=== PATIENT | female | born 1950 | race Caucasian/White ===

== ENCOUNTER 2018-12-29 09:27 | Inpatient (IN) | payer MEDICARE ==
[~2018-12-29] VITALS: Ht 157.5 cm; Wt 82.2 kg
[2019-01-06] MEDS ORDERED: LACT-103 PO (14:40)
[2019-01-06] MEDS ORDERED: IBUP200T64 PO (14:40)
[2019-01-14] MEDS ORDERED: LACTATED RINGERS 1,000 ML IV SCH (07:25)
[2019-01-14] MEDS ORDERED: GABAPENTIN 300 MG CAPSULE PO ONE (07:30)
[2019-01-14] MEDS ORDERED: ACETAMINOPHEN 500 MG TABLET PO ONE (07:30)
[2019-01-14] MEDS ORDERED: FENTANYL PF 250 MCG/5ML ONE (07:39)
[2019-01-14] MEDS ORDERED: MIDAZOLAM 1 MG/ML, 2ML ONE (07:39)
[2019-01-14 07:59] VITALS: BP 127/81
[2019-01-14] MEDS ORDERED: TRANEXAMIC ACID 100 MG/ML, 10ML ONE (08:14)
[2019-01-14] MEDS ORDERED: KETOROLAC 60 MG/2 ML ONE (08:14)
[2019-01-14] MEDS ORDERED: SODIUM CHLORIDE 0.9% 100 ML ONE (08:15)
[2019-01-14] MEDS ORDERED: EPINEPHRINE 1 MG/ML, 1ML ONE (08:15)
[2019-01-14] MEDS ORDERED: ROPIvacaine/PF 0.2%, 20 ML ONE (08:15)
[2019-01-14] MEDS ORDERED: PROMETHAZINE 25 MG/ML, 1ML IV PRN (08:30)
[2019-01-14] MEDS ORDERED: ALBUTEROL/IPRATROPIUM 2.5MG/0.5MG, 3 ML NPPB PRN (08:30)
[2019-01-14] MEDS ORDERED: METOPROLOL 1 MG/ML, 5ML IV PRN (08:30)
[2019-01-14] MEDS ORDERED: ONDANSETRON 2MG/ML, 2ML IV PRN ×2 (08:30→09:00)
[2019-01-14] MEDS ORDERED: OXYcodone 5 MG/5 ML ORAL.SOL UDC PO PRN (08:30)
[2019-01-14] MEDS ORDERED: SCOPOLAMINE PATCH, 1.5MG PATCH.TD72 TD PRN (08:30)
[2019-01-14] MEDS ORDERED: MEPERIDINE/PF 25MG/0.5ML IVPush PRN (08:30)
[2019-01-14] MEDS ORDERED: MIDAZOLAM 1 MG/ML, 2ML IV PRN (08:30)
[2019-01-14] MEDS ORDERED: hydrALAzine 20 MG/ML, 1ML IV PRN (08:30)
[2019-01-14] MEDS ORDERED: PROMETHAZINE 25 MG/ML, 1ML IM PRN (09:00)
[2019-01-14] MEDS ORDERED: ONDANSETRON 4 MG TABLET PO PRN (09:00)
[2019-01-14] MEDS ORDERED: SENNA/DOCUSATE TABLET PO PRN (09:00)
[2019-01-14] MEDS ORDERED: PROMETHAZINE 12.5 MG SUPP PR PRN (09:00)
[2019-01-14] MEDS: DOCUSATE 100 MG CAPSULE PO SCH ×2 (09:00→23:07)
[2019-01-14] MEDS: ACETAMINOPHEN 325 MG TABLET PO SCH ×3 (09:00→23:07)
[2019-01-14] MEDS ORDERED: ALUMINUM/MAG/SIMETHICONE 30 ML UDC PO PRN (09:00)
[2019-01-14] MEDS ORDERED: ZOLPIDEM 5MG TABLET PO PRN (09:00)
[2019-01-14] MEDS ORDERED: BISACODYL 10 MG SUPP PR PRN (09:00)
[2019-01-14] MEDS ORDERED: MAGNESIUM HYDROXIDE 8%, 30ML UDC PO PRN (09:00)
[2019-01-14] MEDS ORDERED: KETOROLAC 30 MG/1 ML IV SCH (09:00)
[2019-01-14] MEDS ORDERED: DIAZEPAM 5 MG TABLET PO PRN (09:00)
[2019-01-14] MEDS ORDERED: DIPHENHYDRAMINE 25 MG CAPSULE PO PRN (09:00)
[2019-01-14] MEDS ORDERED: ONDANSETRON 2MG/ML, 2ML ONE ×2 (09:13→09:59)
[2019-01-14] MEDS ORDERED: SUCCINYLCHOLINE 20 MG/ML, 10ML ONE (09:13)
[2019-01-14] MEDS ORDERED: ROCURONIUM 10 MG/ML,10ML ONE (09:13)
[2019-01-14] MEDS ORDERED: PROPOFOL 10 MG/ML, 20ML ONE (09:59)
[2019-01-14] MEDS ORDERED: CEFAZOLIN 1,000 MG ONE (09:59)
[2019-01-14] MEDS ORDERED: OXYcodone 5 MG/5 ML ORAL.SOL UDC ONE (10:57)
[2019-01-14] MEDS ORDERED: FENTANYL PF 100 MCG/2ML ONE (10:57)
[2019-01-14] MEDS ORDERED: TAMSULOSIN 0.4 MG CAP.ER.24H PO SCH (11:00)
[2019-01-14] MEDS ORDERED: TRANEXAMIC ACID 1,000 MG in SODIUM CHLORIDE 0.9% 100 ML IVPB ONE (11:00)
[2019-01-14] MEDS: FENTANYL PF 100 MCG/2ML IV PRN ×3 (11:02→11:13)
[2019-01-14] MEDS: HYDROmorphone 2 MG/ML, 1ML IVPush PRN ×2 (11:25→11:45)
[2019-01-14] MEDS ORDERED: HYDROmorphone 1 MG/ML, 1ML AMP ONE (11:25)
[2019-01-14 12:49] VITALS: BP_SYST 105; BP_DIAS 60; BP_DIAS 90
[2019-01-14] MEDS: D5%-0.45% NACL 1,000 ML IV SCH ×2 (15:09→22:00)
[2019-01-14] MEDS: KETOROLAC 30 MG/1 ML IV SCH ×2 (17:37→23:07)
[2019-01-14] MEDS: CEFAZOLIN 2,000 MG in SODIUM CHLORIDE 0.9% 50 ML IVPB SCH (17:38)
[2019-01-14] MEDS: ASPIRIN 81 MG TABLET CHEW PO SCH (17:39)
[2019-01-14 21:11] VITALS: BP 100/56
[2019-01-15 01:07] VITALS: BP 95/57
[2019-01-15] MEDS: CEFAZOLIN 2,000 MG in SODIUM CHLORIDE 0.9% 50 ML IVPB SCH (01:23)
[2019-01-15] MEDS: D5%-0.45% NACL 1,000 ML IV SCH ×2 (02:08→12:17)
[2019-01-15 04:40] VITALS: BP 96/62
[2019-01-15] MEDS: ACETAMINOPHEN 325 MG TABLET PO SCH ×2 (05:26→11:03)
[2019-01-15] MEDS: ASPIRIN 81 MG TABLET CHEW PO SCH (05:26)
[2019-01-15] MEDS: KETOROLAC 30 MG/1 ML IV SCH ×2 (05:26→11:00)
[2019-01-15] MEDS ORDERED: DEXAMETHASONE 4 MG/ML, 1ML IVPush SCH (06:00)
[2019-01-15 08:00] VITALS: BP 95/60
[2019-01-15] MEDS: MULTIVITAMINS/MINERALS TABLET PO SCH (08:39)
[2019-01-15] MEDS: DOCUSATE 100 MG CAPSULE PO SCH (08:39)
[2019-01-15] MEDS ORDERED: OXYC5CAP2 PO (08:50)
== END 2019-01-15 14:46 | disposition home or self-care (01) | DRG 470 ==
LOC: ORIP 01-14 06:05 → 4NOR 01-14 12:37 → DCLOUNGE 01-15 14:25
PROVIDERS: ADMIT Orthopaedic Surgery; ATTEND Orthopaedic Surgery
PROC: 0SR906A Replacement of Right Hip Joint with Oxidized Zirconium on Polyethylene Synthetic Substitute, Uncemented, Open Approach (ICD-10-PCS; principal; 2019-01-14 09:15)
DX: M16.11 Unilateral primary osteoarthritis, right hip (principal); Z88.1 Allergy status to other antibiotic agents; Z88.2 Allergy status to sulfonamides; Z82.61 Family history of arthritis; Z82.3 Family history of stroke
CPT/HCPCS: 36415; 72170; 85014; 85018; 86850; 86900; C1713; G0378; J0171; J0690; J1100; J1170; J1885; J2250; J2405; J2704; J2795; J3010; C1776; J0330; J7120

== ENCOUNTER → 2019-01-06 | Outpatient (CLI) | payer MEDICARE ==
[~2019-01-06] MED LIST: IBUP200T64 PO; LACT-103 PO
[2019-01-06 15:24] LABS: BASOPHILS # (AUTO) 0.02 x10^3/uL (0-0.1); BASOPHILS % (AUTO) 0 % (0-1); EOSINOPHILS # (AUTO) 0.25 x10^3/uL (0-0.4); EOSINOPHILS % (AUTO) 4 % (1-7); LYMPHOCYTES # (AUTO) 1.68 x10^3/uL (1-3.4); LYMPHOCYTES % (AUTO) 24 % (22-44); MD NO; MEAN CORPUSCULAR HEMOGLOBIN 34.7 pg (27.0-34.8); MEAN CORPUSCULAR HGB CONC 34.3 g/dL (32.4-35.8); MEAN CORPUSCULAR VOLUME 101.1 fL (80-100); MEAN PLATELET VOLUME 8.9 fL (7.4-10.4); MONOCYTES # (AUTO) 0.42 x10^3/uL (0.2-0.8); MONOCYTES % (AUTO) 6 % (2-9); NEUTROPHILS # (AUTO) 4.56 x10^3/uL (1.8-6.8); NEUTROPHILS % (AUTO) 66 % (42-75); PLATELET COUNT 210 x10^3/uL (130-400); RED BLOOD COUNT 4.36 x10^6/uL (3.82-5.3); RED CELL DISTRIBUTION WIDTH 13.5 % (9.6-15.2)
[2019-01-06 15:35] LABS: ALBUMIN 4.1 g/dL (3.4-5.0); ANION GAP 5 mmol/L (5-15); CALCIUM 9.4 mg/dL (8.5-10.1); CHLORIDE 109 mmol/L (98-107)
[2019-01-06 15:38] LABS: ALANINE AMINOTRANSFERASE 27 U/L (12-78); ALKALINE PHOSPHATASE 91 U/L (45-117); BILIRUBIN,TOTAL 0.6 mg/dL (0.2-1.0); CREATININE 0.72 mg/dL (0.55-1.02); TOTAL PROTEIN 7.6 g/dL (6.4-8.2)
== END | disposition home or self-care (01) ==
LOC: STAR 13:56
PROVIDERS: ATTEND Orthopaedic Surgery
DX: M16.11 Unilateral primary osteoarthritis, right hip (principal)
CPT/HCPCS: 36415; 80053; 85025; 87081; 93005